=== PATIENT | female | born 1995 | race Two or more races ===

== ENCOUNTER 2023-04-04 12:39 | Inpatient (IN) | payer OTHER ==
[~2023-04-04] VITALS: Ht 160 cm; Wt 1.8 kg
[2023-04-04] MEDS ORDERED: PRENATAL TABLE1 EAC4 PO (13:00)
== END 2023-04-07 14:15 | disposition home or self-care (01) | DRG 807 ==
LOC: LDR 12:39 → OB/GYN 04-05 11:46
PROVIDERS: ADMIT Obstetrics & Gynecology; ATTEND Obstetrics & Gynecology
PROC: 4A1HXCZ Monitoring of Products of Conception, Cardiac Rate, External Approach (ICD-10-PCS; 2023-04-04)
PROC: 10E0XZZ Delivery of Products of Conception, External Approach (ICD-10-PCS; principal; 2023-04-05)
DX: O60.14X0 Preterm labor third trimester with preterm delivery third trimester, not applicable or unspecified (principal); Z37.0 Single live birth; Z3A.33 33 weeks gestation of pregnancy; Z20.822 Contact with and (suspected) exposure to COVID-19